=== PATIENT | female | born 1960 | race Caucasian/White ===

== ENCOUNTER → 2019-07-12 | Outpatient (CLI) | payer OTHER ==
--- NOTE | 2019-07-12 16:08 | RAD ---
Chest radiograph 07/12/2019 11:36 AM INDICATION: Cough, shortness of air. Smoker. COMPARISON: CT chest 12/02/2005 TECHNIQUE: Frontal and lateral views of the chest are provided. FINDINGS: The cardiomediastinal silhouette is within normal limits. There are no pleural effusions. There is no pulmonary vascular congestion. There is no pneumothorax. Pulmonary emphysematous changes are present. Lungs are otherwise clear. Biapical pleural-parenchymal scarring is identified. No significant osseous abnormality is identified. IMPRESSION: Pulmonary emphysematous changes without acute cardiopulmonary process. Electronically signed by: Janice Simon MD (07/12/2019 4:05 PM) [facility]
== END | disposition home or self-care (01) ==
LOC: DXRAD 11:30
PROVIDERS: ATTEND Family Medicine
DX: J43.8 Other emphysema (principal); R53.83 Other fatigue; F17.200 Nicotine dependence, unspecified, uncomplicated; R06.00 Dyspnea, unspecified
CPT/HCPCS: 71046

== ENCOUNTER → 2019-09-06 | Outpatient (CLI) | payer OTHER ==
--- NOTE | 2019-09-07 15:43 | RAD ---
DATE: 09/06/2019 1:10 PM EXAM: DIGITAL SCREEN BILAT W/CAD HISTORY: Screening mammogram COMPARISON: July 04, 2010 and May 01, 2016 Bilateral CC and MLO views of the breasts were performed. This study was interpreted with the benefit of Computerized Aided Detection (CAD). FINDINGS: Breast Density: SCATTERED The breast parenchyma shows scattered fibroglandular densities. Breast parenchyma level B Left breast nipple retraction and distortion, unchanged and reportedly related to prior surgery. No suspicious masses, microcalcifications or architectural distortion is present to suggest malignancy in either breast. The visualized axillae are unremarkable. IMPRESSION: No mammographic evidence of malignancy. BI-RADS CATEGORY: 2 BENIGN FINDING(S) RECOMMENDED FOLLOW-UP: 12M 12 MONTH FOLLOW-UP Annual screening mammography is recommended, unless clinically indicated sooner based on symptoms or change in physical exam. PQRS compliance statement: Patient information was entered into a reminder system with a target due date one year for the next mammogram. Mammography is a sensitive method for finding small breast cancers, but it does not detect them all and is not a substitute for careful clinical examination. A negative mammogram does not negate a clinically suspicious finding and should not result in delay in biopsying a clinically suspicious abnormality. "Our facility is accredited by the [employer] Mammography Program."
== END | disposition home or self-care (01) ==
LOC: MAMMO 12:59
PROVIDERS: ATTEND Family Medicine
DX: Z12.31 Encounter for screening mammogram for malignant neoplasm of breast (principal)
CPT/HCPCS: 77067

== ENCOUNTER → 2021-01-02 | Outpatient (CLI) | payer OTHER ==
--- NOTE | 2021-01-02 16:18 | RAD ---
CT THORAX WO History: Reason: LUNG NODULE. / Spl. Instructions: / History: Comparison: None. Technique: Noncontrast CT of the chest. Findings: Assessment is limited by lack of IV contrast. Aorta and Great Vessels: Mild to moderate atherosclerotic calcification. No aneurysm. Thyroid: No significant abnormalities. Mediastinum and mohsen: Shotty lymph nodes not enlarged by size criteria. Esophagus: The visualized esophagus is normal. Heart: The heart is normal in size. There is no pericardial effusion. Minimal coronary artery calcifi cation. Trachea: Mild diffuse bronchial wall thickening. No endobronchial masses. Lungs: Biapical paraseptal emphysematous change and pleural-parenchymal nodular scarring. No airspace consolidation. 4 mm left fissural nodule consistent with fissural lymph node. Pleural Space: There is no pneumothorax or pleural effusion. Upper Abdomen: Limited evaluation of the upper abdomen is unremarkable. Osseous Structures and Soft Tissues: Within normal limits for age. Impression: 1. Mild emphysema. No suspicious pulmonary nodule or airspace consolidation. ------ Exposure: One or more of the following individualized dose reduction techniques were utilized for thi s examination: 1. Automated exposure control 2. Adjustment of the mA and/or kV according to patient size 3. Use of iterative reconstruction technique. Electronically signed by: Eugenio Tran MD (01/02/2021 4:16 PM) [facility]
== END ==
LOC: CT 12:31
PROVIDERS: ATTEND Family Medicine
DX: J43.9 Emphysema, unspecified (principal); I70.0 Atherosclerosis of aorta; I25.10 Atherosclerotic heart disease of native coronary artery without angina pectoris; J94.8 Other specified pleural conditions
CPT/HCPCS: 71250

== ENCOUNTER → 2021-02-28 | Outpatient (CLI) | payer OTHER ==
--- NOTE | 2021-02-28 15:12 | RAD ---
EXAM: Chest, 2 views. HISTORY: Emphysema. COMPARISON: CT dated 01/02/2021. FINDINGS: 2 views of the chest are obtained. There is no infiltrate, pleural effusion or pneumothorax . There is mild biapical pleural parenchymal scarring. The heart is normal in size. IMPRESSION: No acute pulmonary finding. Electronically signed by: Danielle Ayala MD (02/28/2021 3:09 PM) [id number]
== END ==
LOC: RAD 14:58
PROVIDERS: ATTEND Family Medicine
DX: J43.9 Emphysema, unspecified (principal); J98.4 Other disorders of lung
CPT/HCPCS: 71046

== ENCOUNTER → 2021-09-19 | Outpatient (CLI) | payer OTHER ==
--- NOTE | 2021-09-19 15:30 | RAD ---
INDICATION : Routine Screening. COMPARISON: Priors including August 2019 TECHNIQUE: Standard mammogram screening views of the bilateral breasts were obtained. CAD was utilize d. FINDINGS: The breasts are scattered density. There is repeat demonstration of left-sided nipple retraction and architectural distortion which is reportedly from prior surgery. No definite new suspicious mass IMPRESSION: BI-RADS Category 2: Benign findings. Recommend repeat screening examination in one year. The patient was placed into the recall system with a suggested recall date for follow up imaging. Mammography is the most sensitive method for finding small breast cancers, but it does not detect the m all and is not a substitute for careful clinical examination. A negative mammogram does not negate a clinically suspicious finding and should not result in delay in biopsying a clinically suspicious abnormality. Electronically signed by: Liam Tomlinson MD (09/19/2021 3:28 PM) [id number]
== END ==
LOC: MAMMO 14:31
PROVIDERS: ATTEND Family Medicine
DX: Z12.31 Encounter for screening mammogram for malignant neoplasm of breast (principal)
CPT/HCPCS: 77067